=== PATIENT | female | born 1990 | race Two or more races ===

== ENCOUNTER 2020-02-16 13:14 | Outpatient (CLI) | payer OTHER | END 2020-02-16 13:22 | disposition home or self-care (01) | LOC: LAB 13:14 | DX: Z20.828 Contact with and (suspected) exposure to other viral communicable diseases (principal); Z03.818 Encounter for observation for suspected exposure to other biological agents ruled out ==

== ENCOUNTER → 2020-06-29 | Outpatient (CLI) | payer OTHER | END | disposition home or self-care (01) | LOC: PPH VACUNA 07:15 | DX: Z23 Encounter for immunization (principal) ==

== ENCOUNTER 2021-03-30 15:54 | Outpatient (CLI) | payer OTHER | END 2021-03-30 16:01 | disposition home or self-care (01) | LOC: SONOGRAMA 15:54 | DX: R10.84 Generalized abdominal pain (principal); R10.2 Pelvic and perineal pain ==